=== PATIENT | male | born 1975 | race Caucasian/White ===

== ENCOUNTER 2019-11-28 08:44 | Emergency (ER) | payer MEDICAID, OTHER ==
[2019-11-28] MEDS ORDERED: LORazepam 1 MG Tab PO ONE (09:13)
--- NOTE | 2019-11-28 09:20 | EDM.PDOC ---
ED HPI GENERAL MEDICAL PROBLEM - General Chief Complaint: Medication Administration Stated Complaint: OFF MEDS Time Seen by Provider: 11/28/19 09:04 Source of Information: Reports: Patient - History of Present Illness INITIAL COMMENTS - FREE TEXT/NARRATIVE: Patient is a 44-year-old male with a history of depression who is presenting with 3 days of worsening anhedonia fatigue and anxiety in the setting of running out of his duloxetine 4 days ago due to a mixup with the prescriptions that are normally mailed to him from his home in [place]. He denies HI or SI he denies auditory or visual hallucinations. Denies any physical complaints. He does report that became very upset recently and punched a wall with his right hand but he denies any hand pain. - Related Data Allergies Allergy/AdvReac Type Severity Reaction Status Date / Time No Known Allergies Allergy Verified 11/28/19 09:07 Home Meds: Home Meds DULoxetine [Cymbalta] 60 mg PO DAILY 7 Days #7 cap 11/28/19 [Rx] Past Medical History - Past Health History Medical/Surgical History: Denies Medical/Surgical History Respiratory History: Reports: Asthma Psychiatric History: Reports: Anxiety - Infectious Disease History Infectious Disease History: Reports: None Social & Family History - Family History Family Medical History: Noncontributory - Tobacco Use Smoking Status *Q: Unknown Ever Smoked - Caffeine Use Caffeine Use: Reports: None - Recreational Drug Use Recreational Drug Use: No ED ROS GENERAL - Review of Systems Review Of Systems: See Below Free Text/Narrative/Comment: General: No fever. Skin: No rash. Eyes: No vision problems. ENT: No sore throat. Neck: No neck stiffness. Respiratory: No shortness of breath. Cardiac: No chest pain. Gastrointestinal: No nausea, vomiting or abdominal pain. Urinary: No dysuria. Musculoskeletal: HPI Neurologic: No headache. Psychiatric: Per HPI ED EXAM, GENERAL - Physical Exam Exam: See Below Free Text/Narrative:: General Appearance: No acute distress, appears comfortable Skin: No rash HEENT: Normocephalic/atraumatic, sclera anicteric, mucous membranes moist Neck: Normal range of motion Chest and Lungs: Bilateral breath sounds, clear to auscultation Cardiovascular: Regular rate and rhythm, no murmur Abdomen: Soft, non-tender Back: Normal Musculoskeletal: Abrasions over the knuckles of the right hand without underlying tenderness swelling deformity or limitation in range of motion there is no tenderness to palpation of the right hand which is neurovascularly intact strength intact Neurologic: Awake, alert, no obvious deficits, moving all extremities Psychiatric: Tearful and anxious, no SI, no HI, no signs of internal stimuli, thoughts are linear and goal-directed and future oriented Course - Vital Signs Last Recorded V/S: Last Vital Signs Temp 98.3 F 11/28/19 09:08 Pulse 69 11/28/19 09:08 Resp 17 11/28/19 09:08 BP 142/92 H 11/28/19 09:08 Pulse Ox 98 11/28/19 09:08 - Orders/Labs/Meds Orders: Active Orders 24 hr Category Date Time Status LORazepam [Ativan] Med 11/28/19 09:13 Once 1 mg PO ONETIME ONE Departure - Departure Time of Disposition: :17 Disposition: Home, Self-Care 01 Condition: Good Clinical Impression: Depression - Discharge Information *PRESCRIPTION DRUG MONITORING PROGRAM REVIEWED*: Not Applicable *COPY OF PRESCRIPTION DRUG MONITORING REPORT IN PATIENT ERNESTINE: Not Applicable Instructions: Living With Depression Referrals: [facility] [Outside] Additional Instructions: The following information is given to patients seen in the emergency department who are being discharged to home. This information is to outline your options for follow-up care. We provide all patients seen in our emergency department with a follow-up referral. The need for follow-up, as well as the timing and circumstances, are variable depending upon the specifics of your emergency department visit. If you don't have a primary care physician on staff, we will provide you with a referral. We always advise you to contact your personal physician following an emergency department visit to inform them of the circumstance of the visit and for follow-up with them and/or the need for any referrals to a consulting specialist. The emergency department will also refer you to a specialist when appropriate. This referral assures that you have the opportunity for follow-up care with a specialist. All of these measure are taken in an effort to provide you with optimal care, which includes your follow-up. Under all circumstances we always encourage you to contact your private physician who remains a resource for coordinating your care. When calling for follow-up care, please make the office aware that this follow-up is from your recent emergency room visit. If for any reason you are refused follow-up, please contact the [facility] Emergency Department at and asked to speak to the emergency department charge nurse. Sepsis Event Note - Evaluation Sepsis Screening Result: No Definite Risk - Focused Exam Vital Signs: Vital Signs Temp Pulse Resp BP Pulse Ox 11/28/19 09:08 98.3 F 69 17 142/92 H 98 Date Exam was Performed: 11/28/19 Time Exam was Performed: 09:13 - My Orders Last 24 Hours: My Active Orders 11/28/19 09:13 LORazepam [Ativan] 1 mg PO ONETIME ONE - Assessment/Plan Last 24 Hours: My Active Orders 11/28/19 09:13 LORazepam [Ativan] 1 mg PO ONETIME ONE Assessment:: 44-year-old man with history of depression presenting with tearfulness and increased anxiety and anhedonia likely secondary to running out of his duloxetine. He has no active HI he has no active SI he has no signs of internal stimuli his thoughts are linear and goal-directed and future oriented I do not see an indication for inpatient psychiatric admission. Patient is somewhat anxious and says that his roommate can drive him home. For this reason help with patient's anxiety he was given 1 mg of p.o. Ativan. A 2-week prescription for his medication was sent to the local pharmacy.
== END 2019-11-28 09:39 | disposition home or self-care (01) ==
LOC: MW.ED 08:44
DX: F32.9 Major depressive disorder, single episode, unspecified (principal); F41.9 Anxiety disorder, unspecified; Z79.899 Other long term (current) drug therapy
CPT/HCPCS: 99283; A9270

== ENCOUNTER 2019-12-04 14:12 | Emergency (ER) | payer MEDICAID, OTHER ==
--- NOTE | 2019-12-04 14:23 | EDM.PDOC ---
ED HPI GENERAL MEDICAL PROBLEM - General Chief Complaint: General Stated Complaint: MEDICATION REFILL Time Seen by Provider: 12/04/19 14:15 Source of Information: Reports: Patient History Limitations: Reports: No Limitations - History of Present Illness INITIAL COMMENTS - FREE TEXT/NARRATIVE: HISTORY AND PHYSICAL: History of present illness: Patient is a 44-year-old male who presents to the emergency room with request of medication refill and right knee pain. Patient takes Cymbalta 60 mg once daily for depression and PTSD. He denies any thoughts of self harm or harming of others. [place] and has not been able to establish with a primary care provider. He did call his primary care provider back home, he had a friend fill his prescription and mail it to him. Supposedly the friend mailed it to the wrong address and the medication was returned to her. He did come to our emergency room earlier this month for medication refill, given 7 tablets but today would be his last dose. He also would like his right knee looked at as he feels that he needs "fluid drained off of it" as he works long hard hours and feels ibuprofen is not alleviating his discomfort. He did have an arthroscopy done July 2018 and has had intermittent pain and discomfort since then, which he associates with "working hard". He denies any injury, trauma or falls. Denies any numbness, tingling or weakness of the affected extremity. Patient offers no systemic complaints. Review of systems: As per history of present illness and below otherwise all systems reviewed and negative. Past medical history: As per history of present illness and as reviewed below otherwise noncontributory. Surgical history: As per history of present illness and as reviewed below otherwise noncontributory. Social history: See social history for further information Family history: As per history of present illness and as reviewed below otherwise noncontributory. Physical exam: General: Well-developed and well-nourished 44-year-old male. Alert and oriented. Nontoxic-appearing and in no acute distress. HEENT: Atraumatic, normocephalic, pupils equal and reactive bilaterally, negative for conjunctival pallor or scleral icterus, mucous membranes moist, TMs normal bilaterally, throat clear, neck supple, nontender, trachea midline. No drooling or trismus noted. No meningeal signs. No hot potato voice noted. Lungs: Clear to auscultation, breath sounds equal bilaterally, chest nontender. Heart: S1S2, regular rate and rhythm without overt murmur Abdomen: Soft, nondistended, nontender. Negative for masses or hepatosplenomegaly. Negative for costovertebral tenderness. Skin: Intact, warm, dry. No lesions or rashes noted. Extremities: Atraumatic, moves all extremities per self without difficulty or deficits, negative for cords or calf pain. Neurovascular unremarkable. Neuro: Awake, alert, oriented. Cranial nerves II through XII unremarkable. Cerebellum unremarkable. Motor and sensory unremarkable throughout. Exam nonfocal. Notes: Patient's right knee exam is within normal limits. There is no fluid, soft tissue swelling or redness of the knee. He states if I "cannot drain it all just follow-up" and declines wanting this evaluated further. We did discuss the need to establish with a primary care provider as he cannot keep returning to the emergency room for his Cymbalta to be refilled. I will give him a two- week supply and put him on our expedited follow-up list through our primary care clinic. He denies any other concerns or needs for being here today. Supportive care measures were reviewed and discussed. Voices understanding and is agreeable to plan of care. Denies any further questions or concerns at this time. Diagnostics: None Therapeutics: None Prescription: Cymbalta (#14) Impression: Encounter for medication refill Right knee pain Plan: 1. Further medication refills will need to be done through the primary care office, not the emergency room. 2. Take your medication as directed. 3. Rest, ice, elevate the right knee for comfort purposes. You can alternate Tylenol and ibuprofen as we discussed. You may want to consider following up with an orthopedic provider if this pain continues. 4. As we discussed, establish care with a primary care provider as you state you are going to be local to the area. 5. Return to the ED as needed and as discussed. Definitive disposition and diagnosis as appropriate pending reevaluation and review of above. - Related Data Allergies Allergy/AdvReac Type Severity Reaction Status Date / Time No Known Allergies Allergy Verified 11/28/19 09:07 Home Meds: Home Meds DULoxetine [Cymbalta] 60 mg PO DAILY 7 Days #7 cap 11/28/19 [Rx] DULoxetine HCl [Cymbalta] 60 mg PO DAILY #14 capsule. 12/04/19 [Rx] Past Medical History - Past Health History Medical/Surgical History: Denies Medical/Surgical History Respiratory History: Reports: Asthma Psychiatric History: Reports: Anxiety - Infectious Disease History Infectious Disease History: Reports: None Social & Family History - Family History Family Medical History: Noncontributory - Caffeine Use Caffeine Use: Reports: None ED ROS GENERAL - Review of Systems Review Of Systems: Comprehensive ROS is negative, except as noted in HPI. ED EXAM, GENERAL - Physical Exam Exam: See Below (See dictation) Departure - Departure Time of Disposition: 14:31 Disposition: Home, Self-Care 01 Clinical Impression: Medication refill Right knee pain Qualifiers: Chronicity: unspecified Qualified Code(s): M25.561 - Pain in right knee - Discharge Information Prescriptions: DULoxetine HCl [Cymbalta] 60 mg PO DAILY #14 capsule. Instructions: Medicine Refill at the Emergency Department Forms: ED Department Discharge Additional Instructions: The following information is given to patients seen in the emergency department who are being discharged to home. This information is to outline your options for follow-up care. We provide all patients seen in our emergency department with a follow-up referral. The need for follow-up, as well as the timing and circumstances, are variable depending upon the specifics of your emergency department visit. If you don't have a primary care physician on staff, we will provide you with a referral. We always advise you to contact your personal physician following an emergency department visit to inform them of the circumstance of the visit and for follow-up with them and/or the need for any referrals to a consulting specialist. The emergency department will also refer you to a specialist when appropriate. This referral assures that you have the opportunity for follow-up care with a specialist. All of these measure are taken in an effort to provide you with optimal care, which includes your follow-up. Under all circumstances we always encourage you to contact your private physician who remains a resource for coordinating your care. When calling for follow-up care, please make the office aware that this follow-up is from your recent emergency room visit. If for any reason you are refused follow-up, please contact the [facility] Emergency Department at and asked to speak to the emergency department charge nurse. [facility] [address] [place] [address] [facility] [address] [place] [address] 1. Further medication refills will need to be done through the primary care office, not the emergency room. 2. Take your medication as directed. 3. Rest, ice, elevate the right knee for comfort purposes. You can alternate Tylenol and ibuprofen as we discussed. You may want to consider following up with an orthopedic provider if this pain continues. 4. As we discussed, establish care with a primary care provider as you state you are going to be local to the area. 5. Return to the ED as needed and as discussed. Sepsis Event Note - Focused Exam Date Exam was Performed: 12/04/19 Time Exam was Performed: 14:25
== END 2019-12-04 14:47 | disposition home or self-care (01) ==
LOC: MW.ED 14:12
CPT/HCPCS: 99282; 99283

== ENCOUNTER 2020-03-31 20:28 | Emergency (ER) | payer MEDICAID, OTHER ==
[2020-03-31] MEDS ORDERED: Sodium Chloride 0.9% 10 ML Syringe FLUSH PRN (21:51)
[2020-03-31] MEDS ORDERED: Sodium Chloride 0.9% 2.5 ML Syringe FLUSH PRN (21:51)
[2020-03-31] MEDS ORDERED: Alum Hydrox/Mag Hydrox/Simeth 15 ML, Lidocaine 2% 5 ML PO ONE ×2 (22:00)
[2020-03-31 22:24] LABS: CARBON DIOXIDE,CO2 20.9 mmol/L (21.0-32.0); POTASSIUM,K 2.7 mmol/L (3.5-5.1)
--- NOTE | 2020-03-31 22:33 | CR ---
INDICATION: Cough TECHNIQUE: Chest 2 views. COMPARISON: None FINDINGS: Cardiovascular and mediastinum: Heart size and vasculature are normal in caliber and appearance. Mediastinum is within normal limits. Lungs and pleural spaces: Lungs are clear. No sign of infiltrate or mass. No sign of pleural effusion. No pneumothorax. Bones and soft tissues: No significant findings. IMPRESSION: Unremarkable chest. Dictated by Alvarez Cao MD @ Mar 31 2020 10:30PM Signed by Dr. Alvarez Cao @ Mar 31 2020 10:31PM
[2020-03-31] MEDS ORDERED: Magnesium Sulfate/Water 2 GM in Premix Bag 1 BAG IV ONE (22:40)
[2020-03-31] MEDS ORDERED: Lactated Ringers 1,000 ML IV ONE (22:40)
[2020-03-31] MEDS ORDERED: Potassium Chloride 10% 20 MEQ/15 ML Soln 30 ML UD Cup PO ONE (22:40)
[2020-03-31] MEDS ORDERED: Acetaminophen 500 MG Tab PO ONE (22:41)
[2020-03-31] MEDS ORDERED: fentaNYL 50 MCG/ML SDV IVPUSH ONE (22:41)
[2020-03-31] MEDS ORDERED: Iopamidol 755 Mg/ML 100 ML Bottle IVPUSH ONE (23:31)
--- NOTE | 2020-03-31 23:39 | EDM.PDOC ---
ED HPI GENERAL MEDICAL PROBLEM - General Chief Complaint: Gastrointestinal Problem Stated Complaint: NAUSEA,VOMITTING,COUGH,DIARRHEA Time Seen by Provider: 03/31/20 21:31 Source of Information: Reports: Patient, Old Records History Limitations: Reports: No Limitations - History of Present Illness INITIAL COMMENTS - FREE TEXT/NARRATIVE: 44-year-old male with a past medical history of depression and hepatitis C in remission presenting with multiple complaints. Patient reports a 5-day history of periumbilical abdominal pain. Nothing makes it better or worse, pain is constant. Described as "dull". Also reports diffuse muscle cramps to the upper and lower extremities, decreased appetite, and a nonproductive cough. Did have some nausea and vomiting over the past few days but none at this moment. No sick contacts or recent travel. Denies fever, hemoptysis, chest pain, shortness of breath, hematemesis, diarrhea, bloody stools, dysuria, urinary frequency. ROS: A 10-point review of systems was negative, except as noted in the HPI (or in the ROS section of this note). Past medical history: Reviewed, no additional pertinent history. Surgical history: Reviewed in system, no additional pertinent history. Social history: Reviewed in system, no additional pertinent history. Family history: Reviewed in system, no additional pertinent history. PHYSICAL EXAM Vital signs reviewed. Nursing notes reviewed. Constitutional: Awake, alert, non-distressed. Head: Normocephalic, atraumatic. Eyes: EOMI, conjunctiva normal, no discharge, no scleral icterus. Ears, Nose, Throat: External ears and nose normal, moist oral mucosa. Cardiovascular: 2+ radial pulse, capillary refill less than 2 seconds. Pulmonary: normal work of breathing, no accessory muscle use. Abdomen/GI: Soft, minimal periumbilical tenderness, nondistended, no guarding or rigidity, no masses. Musculoskeletal: No deformities. Integumentary: Appropriate color for ethnicity, warm, dry, no pallor or jaundice, no rash. Neurologic: Alert, answering questions appropriately, normal speech, no facial droop, moving all extremities well. Psychiatric: Appropriate mood and affect, normal thought process. Abdominal Pain Score (Numeric/FACES): 10 - Related Data Allergies Allergy/AdvReac Type Severity Reaction Status Date / Time No Known Allergies Allergy Verified 12/04/19 14:38 Home Meds: Home Meds DULoxetine [Cymbalta] 60 mg PO DAILY 7 Days #7 cap 11/28/19 [Rx] Ibuprofen [Motrin] 800 mg PO BIDM PRN 03/31/20 [History] Azithromycin 250 mg PO DAILY 4 Days #4 tablet 04/01/20 [Rx] Potassium Chloride 40 meq PO DAILY 5 Days #10 packet 04/01/20 [Rx] Past Medical History - Past Health History Medical/Surgical History: Denies Medical/Surgical History HEENT History: Reports: None Cardiovascular History: Reports: None Respiratory History: Reports: Asthma Gastrointestinal History: Reports: None Genitourinary History: Reports: None Musculoskeletal History: Reports: Back Pain, Chronic Neurological History: Reports: None Psychiatric History: Reports: Anxiety, Depression, PTSD Endocrine/Metabolic History: Reports: None Hematologic History: Reports: None Immunologic History: Reports: None Oncologic (Cancer) History: Reports: None Dermatologic History: Reports: None - Infectious Disease History Infectious Disease History: Reports: Chicken Pox, Hepatitis C, Shingles - Past Surgical History Head Surgeries/Procedures: Reports: None HEENT Surgical History: Reports: Adenoidectomy, Tonsillectomy Musculoskeletal Surgical History: Reports: Arthroscopic Knee Social & Family History - Family History Family Medical History: Noncontributory - Tobacco Use Smoking Status *Q: Current Every Day Smoker Years of Tobacco use: 25 Packs/Tins Daily: 0.5 Used Tobacco, but Quit: No Second Hand Smoke Exposure: Yes - Caffeine Use Caffeine Use: Reports: Coffee, Soda - Recreational Drug Use Recreational Drug Use: Yes Drug Use in Last 12 Months: Yes Recreational Drug Type: Reports: Marijuana/Hashish Recreational Drug Use Frequency: Weekly ED ROS GENERAL - Review of Systems Review Of Systems: See Below ED EXAM, GI/ABD - Physical Exam Exam: See Below Course - Vital Signs Text/Narrative:: Patient hemodynamically stable, afebrile, well-appearing, looks nontoxic. Differential diagnosis includes but is not limited to: Appendicitis, pancreatitis, gastritis, peptic ulcer disease, intra-abdominal infection, sepsis, pneumonia, viral URI, COVID 19 infection, rhabdomyolysis, electrolyte disturbance, UTI, pyelonephritis, etc. Labs show leukocytosis. Normal lactate. Severe hypokalemia 2.7, creatinine elevated at 1.5. Bilirubin is elevated at 1.3. CK elevated at 616. Lipase is within normal limits. Urinalysis shows small ketones, negative blood, no e vidence of infection. Rapid COVID-[address] abdomen/pelvis with contrast demonstrated groundglass opacities in the lung bases suspicious for viral pneumonia, otherwise no acute intra-abdominal findings. Patient was given IV lactated Ringer's, magnesium sulfate, p.o. potassium. Also received IV ceftriaxone, p.o. azithromycin, acetaminophen, and IV fentanyl. Pain relieved after analgesic medication. We had initially planned to admit the patient to the hospital for hypokalemia and concern for pneumonia. He was initially agreeable to this plan. At 2:12 AM I was informed that the patient wants to leave the emergency department AGAINST MEDICAL ADVICE. He appears to have capacity and does not appear clinically intoxicated and exhibits no evidence of encephalopathy or altered mental status. He states that he is tired of waiting for a bed and wants to go home. I am unable to convince him to stay. As a stopgap measure we will prescribe oral potassium and another 4 days of oral azithromycin for community-acquired pneumonia. He understands that his condition could worsen at any point he could potentially from this decision and is accepting of these risks. I counseled him to increase his fluid intake over the next several days. He does need to follow-up with a primary medical clinic in the next 24 to 48 hours for reevaluation. I also counseled him that a negative COVID test here is not definitive and that there is a strong possibility that he has COVID given his constellation of symptoms and radiographic findings. I am suspicious that he has falsely tested negative. I counseled the patient that we are concerned for COVID and that he should not go to work until he has been well for at least 72 hours and at least 10 days from the onset of his symptoms. We will place him on the family medicine clinic referral list for close follow-up, ideally within 24 hours. I was unable to provide specific written discharge instructions to the patient that I would typically dictate due to EMR error. However I did reiterated the patient needs to follow-up closely with the family medicine clinic within 24 hours for repeat COVID testing, to have his potassium rechecked, and for general reevaluation. Patient voiced understanding and had no questions. He was discharged in good condition AGAINST MEDICAL ADVICE. Last Recorded V/S: Last Vital Signs Temp 36.2 C 03/31/20 21:39 Pulse 80 04/01/20 00:48 Resp 18 04/01/20 00:48 BP 140/69 04/01/20 00:48 Pulse Ox 99 04/01/20 00:48 - Orders/Labs/Meds Orders: Active Orders 24 hr Category Date Time Status Pulse Oximetry [RC] ASDIRECTED Care 03/31/20 21:51 Active Nothing Per Oral Diet [DIET] Diet 03/31/20 Dinner Active Sodium Chloride 0.9% [Saline Flush] Med 03/31/20 21:51 Active 10 ml FLUSH ASDIRECTED PRN Sodium Chloride 0.9% [Saline Flush] Med 03/31/20 21:51 Active 2.5 ml FLUSH ASDIRECTED PRN Saline Lock Insert [OM.PC] Stat Oth 03/31/20 21:51 Ordered Medication Orders Sodium Chloride (Saline Flush) 10 ml FLUSH ASDIRECTED PRN PRN Reason: Keep Vein Open Last Admin: 03/31/20 23:06 Dose: 10 ml Documented by: VENICE Sodium Chloride (Saline Flush) 2.5 ml FLUSH ASDIRECTED PRN PRN Reason: Keep Vein Open Last Admin: 03/31/20 23:06 Dose: 2.5 ml Documented by: VENICE Labs: Laboratory Tests 03/31/20 03/31/20 03/31/20 Range/Units 21:52 21:52 21:52 WBC 12.90 H (4.0-11.0) K/uL RBC 4.79 (4.50-5.90) M/uL Hgb 16.1 (13.0-17.0) g/dL Hct 43.9 (38.0-50.0) % MCV 91.6 (80.0-98.0) fL MCH 33.6 H (27.0-32.0) pg MCHC 36.7 (31.0-37.0) g/dL RDW Std Deviation 41.2 (28.0-62.0) fl RDW Coeff of Jess 12 (11.0-15.0) % Plt Count 319 (150-400) K/uL MPV 10.00 (7.40-12.00) fL Neut % (Auto) 66.8 (48.0-80.0) % Lymph % (Auto) 21.2 (16.0-40.0) % Turner % (Auto) 11.2 (0.0-15.0) % Eos % (Auto) 0.4 (0.0-7.0) % Baso % (Auto) 0.4 (0.0-1.5) % Neut # (Auto) 8.6 H (1.4-5.7) K/uL Lymph # (Auto) 2.7 H (0.6-2.4) K/uL Turner # (Auto) 1.4 H (0.0-0.8) K/uL Eos # (Auto) 0.1 (0.0-0.7) K/uL Baso # (Auto) 0.1 (0.0-0.1) K/uL Nucleated RBC % 0.0 /100WBC Nucleated RBCs # 0 K/uL Lactate 1.7 (0.20-2.00) mmol/L Sodium 135 L (136-148) mmol/L Potassium 2.7 L (3.5-5.1) mmol/L Chloride 96 L (98-107) mmol/L Carbon Dioxide 20.9 L (21.0-32.0) mmol/L BUN 21 H (7.0-18.0) mg/dL Creatinine 1.5 H (0.8-1.3) mg/dL Est Cr Clr Drug Dosing 65.56 mL/min Estimated GFR (MDRD) 51.1 ml/min Glucose 107 H (74-106) mg/dL Calcium 10.3 H (8.5-10.1) mg/dL Total Bilirubin 1.3 H (0.2-1.0) mg/dL AST 34 (15-37) IU/L ALT 26 (14-63) IU/L Alkaline Phosphatase 94 (46-116) U/L Creatine Kinase 616 H (26-308) U/L Total Protein 8.6 H (6.4-8.2) g/dL Albumin 5.2 H (3.4-5.0) g/dL Globulin 3.4 (2.6-4.0) g/dL Albumin/Globulin Ratio 1.5 (0.9-1.6) Lipase 246 (73-393) U/L Urine Color Urine Appearance Urine pH (5.0-8.0) Ur Specific Jones (1.001-1.035) Urine Protein (NEGATIVE) mg/dL Urine Glucose (UA) (NEGATIVE) mg/dL Urine Ketones (NEGATIVE) mg/dL Urine Occult Blood (NEGATIVE) Urine Nitrite (NEGATIVE) Urine Bilirubin (NEGATIVE) Urine Urobilinogen (<2.0) EU/dL Ur Leukocyte Esterase (NEGATIVE) COVID-19 (NEELIMA) (NEGATIVE) 03/31/20 04/01/20 Range/Units 22:40 00:15 WBC (4.0-11.0) K/uL RBC (4.50-5.90) M/uL Hgb (13.0-17.0) g/dL Hct (38.0-50.0) % MCV (80.0-98.0) fL MCH (27.0-32.0) pg MCHC (31.0-37.0) g/dL RDW Std Deviation (28.0-62.0) fl RDW Coeff of Jess (11.0-15.0) % Plt Count (150-400) K/uL MPV (7.40-12.00) fL Neut % (Auto) (48.0-80.0) % Lymph % (Auto) (16.0-40.0) % Turner % (Auto) (0.0-15.0) % Eos % (Auto) (0.0-7.0) % Baso % (Auto) (0.0-1.5) % Neut # (Auto) (1.4-5.7) K/uL Lymph # (Auto) (0.6-2.4) K/uL Turner # (Auto) (0.0-0.8) K/uL Eos # (Auto) (0.0-0.7) K/uL Baso # (Auto) (0.0-0.1) K/uL Nucleated RBC % /100WBC Nucleated RBCs # K/uL Lactate (0.20-2.00) mmol/L Sodium (136-148) mmol/L Potassium (3.5-5.1) mmol/L Chloride (98-107) mmol/L Carbon Dioxide (21.0-32.0) mmol/L BUN (7.0-18.0) mg/dL Creatinine (0.8-1.3) mg/dL Est Cr Clr Drug Dosing mL/min Estimated GFR (MDRD) ml/min Glucose (74-106) mg/dL Calcium (8.5-10.1) mg/dL Total Bilirubin (0.2-1.0) mg/dL AST (15-37) IU/L ALT (14-63) IU/L Alkaline Phosphatase (46-116) U/L Creatine Kinase (26-308) U/L Total Protein (6.4-8.2) g/dL Albumin (3.4-5.0) g/dL Globulin (2.6-4.0) g/dL Albumin/Globulin Ratio (0.9-1.6) Lipase (73-393) U/L Urine Color YELLOW Urine Appearance CLEAR Urine pH 5.0 (5.0-8.0) Ur Specific Jones <= 1.005 (1.001-1.035) Urine Protein NEGATIVE (NEGATIVE) mg/dL Urine Glucose (UA) NEGATIVE (NEGATIVE) mg/dL Urine Ketones 15 H (NEGATIVE) mg/dL Urine Occult Blood NEGATIVE (NEGATIVE) Urine Nitrite NEGATIVE (NEGATIVE) Urine Bilirubin NEGATIVE (NEGATIVE) Urine Urobilinogen 0.2 (<2.0) EU/dL Ur Leukocyte Esterase NEGATIVE (NEGATIVE) COVID-19 (NEELIMA) NEGATIVE (NEGATIVE) Meds: Medications Generic Name Dose Route Start Last Admin Trade Name Freq PRN Reason Stop Dose Admin Sodium Chloride 10 ml 03/31/20 21:51 03/31/20 23:06 Saline Flush FLUSH 10 ml ASDIRECTED PRN Administration Keep Vein Open Sodium Chloride 2.5 ml 03/31/20 21:51 03/31/20 23:06 Saline Flush FLUSH 2.5 ml ASDIRECTED PRN Administration Keep Vein Open Discontinued Medications Generic Name Dose Route Start Last Admin Trade Name Freq PRN Reason Stop Dose Admin Acetaminophen 1,000 mg 03/31/20 22:41 03/31/20 23:04 Tylenol Extra Strength PO 03/31/20 22:42 1,000 mg ONETIME ONE Administration Azithromycin 500 mg 04/01/20 00:34 04/01/20 00:41 Zithromax PO 04/01/20 00:35 500 mg NOW STA Administration Al Hydroxide/Mg Hydroxide 15 0 ml 03/31/20 22:00 03/31/20 22:36 ml/ Lidocaine HCl 5 ml PO 03/31/20 22:01 1 each ONETIME ONE Administration Fentanyl 100 mcg 03/31/20 22:41 03/31/20 23:03 Fentanyl IVPUSH 03/31/20 22:42 100 mcg ONETIME ONE Administration Lactated Ringer's 1,000 mls @ 999 mls/hr 03/31/20 22:40 03/31/20 23:03 Ringers, Lactated IV 03/31/20 23:40 999 mls/hr .BOLUS ONE Administration Magnesium Sulfate 2 gm/ Premix 50 mls @ 50 mls/hr 03/31/20 22:40 03/31/20 23:03 IV 03/31/20 23:39 50 mls/hr ONETIME ONE Administration Ceftriaxone Sodium/Dextrose 1 50 mls @ 100 mls/hr 04/01/20 00:34 04/01/20 00:41 gm/ Premix IV 04/01/20 01:03 100 mls/hr ONETIME ONE Administration Iopamidol 100 ml 03/31/20 23:31 03/31/20 23:32 Isovue-370 (76%) IVPUSH 03/31/20 23:32 100 ml ONETIME ONE Administration Potassium Chloride 60 meq 03/31/20 22:40 03/31/20 23:01 Potassium Chloride PO 03/31/20 22:41 60 meq ONETIME ONE Administration Departure - Departure Time of Disposition: 02:15 Disposition: Against Medical Advice 07 Condition: Good Clinical Impression: Hypokalemia Community acquired pneumonia Qualifiers: Laterality: unspecified laterality Qualified Code(s): J18.9 - Pneumonia, unspecified organism - Discharge Information *PRESCRIPTION DRUG MONITORING PROGRAM REVIEWED*: Not Applicable *COPY OF PRESCRIPTION DRUG MONITORING REPORT IN PATIENT ERNESTINE: Not Applicable Sepsis Event Note (ED) - Evaluation Sepsis Screening Result: No Definite Risk - Focused Exam Vital Signs: Vital Signs Temp Pulse Resp BP Pulse Ox 03/31/20 21:39 36.2 C 76 20 149/94 H 98 - My Orders Last 24 Hours: My Active Orders 03/31/20 Dinner Nothing Per Oral Diet [DIET] 03/31/20 21:51 Pulse Oximetry [RC] ASDIRECTED Sodium Chloride 0.9% [Saline Flush] 10 ml FLUSH ASDIRECTED PRN Sodium Chloride 0.9% [Saline Flush] 2.5 ml FLUSH ASDIRECTED PRN Saline Lock Insert [OM.PC] Stat - Assessment/Plan Last 24 Hours: My Active Orders 03/31/20 Dinner Nothing Per Oral Diet [DIET] 03/31/20 21:51 Pulse Oximetry [RC] ASDIRECTED Sodium Chloride 0.9% [Saline Flush] 10 ml FLUSH ASDIRECTED PRN Sodium Chloride 0.9% [Saline Flush] 2.5 ml FLUSH ASDIRECTED PRN Saline Lock Insert [OM.PC] Stat
--- NOTE | 2020-04-01 00:05 | CT ---
INDICATION: Periumbilical abdominal pain and leukocytosis TECHNIQUE: Axial images were obtained from the diaphragm to the pubic symphysis. Reformats were obtained in the coronal and sagittal plane. IV Contrast: 100 cc Isovue 370 Oral Contrast: None COMPARISON: None. FINDINGS: Lower chest: Focal ground-glass opacities within the left lower lobe (series 201, image 29). Liver: Unremarkable. Normal in size and attenuation. No masses. Gallbladder and bile ducts: Unremarkable. No stones or inflammation. No biliary dilatation. Spleen: Unremarkable. Normal in size without mass. Pancreas: Unremarkable. No mass or inflammation. Adrenal glands: Unremarkable. No nodules. Kidneys: Unremarkable. No masses, stones, or hydronephrosis. Vasculature: Unremarkable. GI tract: The stomach is unremarkable. No dilated loops of large or small intestine with note made of fluid within the colon. Appendix unremarkable. Pelvis: Bladder moderately distended and unremarkable. Mild prostatic calcification Bones: Degenerative disc disease thoracolumbar spine IMPRESSION: 1. Ground-glass opacities in the lung bases suspicious for a viral pneumonia, including COVID pneumonia. 2. No dilated bowel or localized inflammation, however fluid is noted within the colon which can be seen in a diarrheal illness. Please note that all CT scans at this facility use dose modulation, iterative reconstruction, and/or weight-based dosing when appropriate to reduce radiation dose to as low as reasonably achievable. Dictated by Iftikhar Arriaza MD @ Mar 31 2020 11:57PM Signed by Dr. Iftikhar Arriaza @ Apr 01 2020 12:04AM
[2020-04-01] MEDS ORDERED: Azithromycin 250 MG Tab PO STA (00:34)
[2020-04-01] MEDS ORDERED: cefTRIAXone 1 GM in Premix Bag 1 BAG IV ONE (00:34)
== END 2020-04-01 02:25 | disposition left against medical advice (07) ==
LOC: MW.ED 20:28 → UNDOADMIN 04-01 00:35 → MW.MS 04-01 00:35 → UNDODISIN 04-01 02:15
DX: E87.6 Hypokalemia (principal); J18.9 Pneumonia, unspecified organism; Z20.828 Contact with and (suspected) exposure to other viral communicable diseases; F41.9 Anxiety disorder, unspecified; F32.9 Major depressive disorder, single episode, unspecified; J45.909 Unspecified asthma, uncomplicated; M54.9 Dorsalgia, unspecified; F17.200 Nicotine dependence, unspecified, uncomplicated; G89.29 Other chronic pain; Z79.899 Other long term (current) drug therapy
CPT/HCPCS: 36415; 71046; 74177; 80053; 81003; 82550; 83605; 83690; 85025; 87635; 96365; 99284; A9270; J0696; J3010; J3475; J7120; Q9967; 99283; U0002

== ENCOUNTER 2020-04-10 16:00 | Emergency (ER) | payer MEDICAID, OTHER ==
--- NOTE | 2020-04-10 16:20 | EDM.PDOC ---
ED HPI GENERAL MEDICAL PROBLEM - General Chief Complaint: General Stated Complaint: med clearance Time Seen by Provider: 04/10/20 16:05 Source of Information: Reports: Patient History Limitations: Reports: No Limitations - History of Present Illness INITIAL COMMENTS - FREE TEXT/NARRATIVE: HISTORY AND PHYSICAL: History of present illness: Patient is a 44-year-old male who presents to the emergency room with law enforcement for medical clearance exam. Patient states that he does take Cymbalta on a daily basis is and has not yet taken this medication. He is concerned as he does take this for his PTSD does not have this medication available to him. Law enforcement has no specific concerns. Patient denies any fever, chills, headache, change in vision, syncope or near syncope. Denies any chest pain, back pain, shortness of breath or cough. Denies any abdominal pain, nausea, vomiting, diarrhea, constipation or dysuria. Has not noted any blood in urine or stool. Patient has been eating and drinking appropriately. Review of systems: As per history of present illness and below otherwise all systems reviewed and negative. Past medical history: As per history of present illness and as reviewed below otherwise noncontributory. Surgical history: As per history of present illness and as reviewed below otherwise noncontributory. Social history: See social history for further information Family history: As per history of present illness and as reviewed below otherwise noncontributory. Physical exam: General: Well developed and well nourished. Alert and orientated x 3. Nontoxic in appearance and in no acute distress. Vital signs are stable and have been reviewed by me. Nursing notes were reviewed. HEENT: Atraumatic, normocephalic, pupils equal and reactive bilaterally, negative for conjunctival pallor or scleral icterus, mucous membranes moist, TMs normal bilaterally, throat clear, neck supple, nontender, trachea midline. No drooling or trismus noted. No meningeal signs. No hot potato voice noted. Lungs: Clear to auscultation, breath sounds equal bilaterally, chest nontender. Normal work of breathing, no accessory muscles used. Heart: S1S2, regular rate and rhythm without overt murmur Abdomen: Soft, nondistended, nontender. Negative for masses or hepatosplenomegaly. Negative for costovertebral tenderness. Skin: Intact, warm, dry. No lesions or rashes noted. Hematologic: No petechiae or purpra. Mucosa appropriate color and normal nail bed color and refill. Extremities: Atraumatic, moves all extremities per self without difficulty or deficits, negative for cords or calf pain. Neurovascular unremarkable. Neuro: Awake, alert, oriented. Cranial nerves II through XII unremarkable. Cerebellum unremarkable. Motor and sensory unremarkable throughout. Exam nonfocal. Notes: Patient declines wanting any diagnostics. We discussed signs and symptoms that would prompt them to return to the Emergency Department. Medication, follow up and supportive care measures were reviewed and discussed. Voices understanding and is agreeable to plan of care. Denies any further questions or concerns at this time. Diagnostics: None Therapeutics: Cymbalta Prescription: None Impression: Encounter for medical screening exam Plan: 1. Take your home medications as directed. 2. Follow-up with your primary care provider as needed. 3. Return to the emergency room as needed and as discussed. Definitive disposition and diagnosis as appropriate pending reevaluation and review of above. knees, hips, low back Pain Score (Numeric/FACES): 6 - Related Data Allergies Allergy/AdvReac Type Severity Reaction Status Date / Time No Known Allergies Allergy Verified 04/10/20 16:09 Home Meds: Home Meds DULoxetine [Cymbalta] 60 mg PO DAILY 7 Days #7 cap 11/28/19 [Rx] Ibuprofen [Motrin] 800 mg PO BIDM PRN 03/31/20 [History] Lansoprazole [Prevacid] 15 mg PO DAILY 04/10/20 [History] Past Medical History - Past Health History Medical/Surgical History: Denies Medical/Surgical History HEENT History: Reports: None Cardiovascular History: Reports: None Respiratory History: Reports: Asthma Gastrointestinal History: Reports: None Genitourinary History: Reports: None Musculoskeletal History: Reports: Back Pain, Chronic, Other (See Below) Other Musculoskeletal History: Hip & Knee pain Neurological History: Reports: None Psychiatric History: Reports: Anxiety, Depression, PTSD Endocrine/Metabolic History: Reports: None Hematologic History: Reports: None Immunologic History: Reports: None Oncologic (Cancer) History: Reports: None Dermatologic History: Reports: None - Infectious Disease History Infectious Disease History: Reports: Chicken Pox, Shingles - Past Surgical History Head Surgeries/Procedures: Reports: None HEENT Surgical History: Reports: Adenoidectomy, Tonsillectomy Musculoskeletal Surgical History: Reports: Arthroscopic Knee, Other (See Below) Social & Family History - Family History Family Medical History: Noncontributory - Tobacco Use Smoking Status *Q: Current Every Day Smoker Years of Tobacco use: 25 Packs/Tins Daily: 0.5 - Caffeine Use Caffeine Use: Reports: Coffee, Soda - Recreational Drug Use Recreational Drug Use: Yes Drug Use in Last 12 Months: Yes Recreational Drug Type: Reports: Marijuana/Hashish Recreational Drug Use Frequency: Daily ED ROS GENERAL - Review of Systems Review Of Systems: Comprehensive ROS is negative, except as noted in HPI. ED EXAM, GENERAL - Physical Exam Exam: See Below (See dictation) Course - Vital Signs Last Recorded V/S: Last Vital Signs Temp 97.4 F 04/10/20 16:07 Pulse 78 04/10/20 16:43 Resp 15 04/10/20 16:43 BP 135/88 04/10/20 16:43 Pulse Ox 97 04/10/20 16:43 - Orders/Labs/Meds Meds: Medications Discontinued Medications Generic Name Dose Route Start Last Admin Trade Name Cody PRN Reason Stop Dose Admin Duloxetine HCl 60 mg 04/10/20 16:30 Cymbalta PO DAILY KAY Departure - Departure Time of Disposition: 16:19 Disposition: Home, Self-Care 01 Clinical Impression: Encounter for medical screening examination - Discharge Information Instructions: Medical Screening Exam Forms: ED Department Discharge Additional Instructions: The following information is given to patients seen in the emergency department who are being discharged to home. This information is to outline your options for follow-up care. We provide all patients seen in our emergency department with a follow-up referral. The need for follow-up, as well as the timing and circumstances, are variable depending upon the specifics of your emergency department visit. If you don't have a primary care physician on staff, we will provide you with a referral. We always advise you to contact your personal physician following an emergency department visit to inform them of the circumstance of the visit and for follow-up with them and/or the need for any referrals to a consulting specialist. The emergency department will also refer you to a specialist when appropriate. This referral assures that you have the opportunity for follow-up care with a specialist. All of these measure are taken in an effort to provide you with optimal care, which includes your follow-up. Under all circumstances we always encourage you to contact your private physician who remains a resource for coordinating your care. When calling for follow-up care, please make the office aware that this follow-up is from your recent emergency room visit. If for any reason you are refused follow-up, please contact the [facility] Emergency Department at and asked to speak to the emergency department charge nurse. [facility] [address] [place] [id number] [facility] [address] [place] [id number] Thank you for choosing the [facility] emergency department in [place] for your medical needs today. It was a pleasure caring for you. Today you were seen in the emergency department for medical clearance exam. 1. Take your home medications as directed. 2. Follow-up with your primary care provider as needed. 3. Return to the emergency room as needed and as discussed. Sepsis Event Note (ED) - Evaluation Sepsis Screening Result: No Definite Risk
[2020-04-10] MEDS ORDERED: DULoxetine 60 MG Cap PO SCH (16:30)
== END 2020-04-10 16:44 | disposition home or self-care (01) ==
LOC: MW.ED 16:00
DX: Z02.89 Encounter for other administrative examinations (principal); F41.9 Anxiety disorder, unspecified; F32.9 Major depressive disorder, single episode, unspecified; F43.10 Post-traumatic stress disorder, unspecified; J45.909 Unspecified asthma, uncomplicated; F17.210 Nicotine dependence, cigarettes, uncomplicated; Z79.899 Other long term (current) drug therapy
CPT/HCPCS: 99282; 99283

== ENCOUNTER 2020-06-25 08:33 | Emergency (ER) | payer MEDICAID ==
[2020-06-25] MEDS ORDERED: Albuterol HFA 18 Gm Inhaler INH STA (09:01)
[2020-06-25] MEDS ORDERED: Dexamethasone 4 MG Tab PO STA (09:02)
--- NOTE | 2020-06-25 09:33 | CR ---
INDICATION: Cough COMPARISON: Two view chest dated 03/31/2020 TECHNIQUE: Portable AP erect chest performed at 9:11 a.m. FINDINGS: The lungs are clear. The heart, mediastinum and pulmonary vessels are of normal size. There is no evidence of pleural fluid. IMPRESSION: Negative chest. Dictated by Perfecto Arteaga MD @ Jun 25 2020 9:29AM Signed by Dr. Perfecto Arteaga @ Jun 25 2020 9:31AM
--- NOTE | 2020-06-25 09:51 | EDM.PDOC ---
ED HPI GENERAL MEDICAL PROBLEM - General Chief Complaint: Respiratory Problem Stated Complaint: COUGHING,HEAVY CHEST Time Seen by Provider: 06/25/20 08:47 - History of Present Illness INITIAL COMMENTS - FREE TEXT/NARRATIVE: CHIEF COMPLAINT(S): Cough HISTORY OF PRESENT ILLNESS: This is a 44-year-old man with a past medical history of asthma who comes to the emergency department with a chief complaint of cough. Patient states that for approximately 4 to 5 days now he is experiencing a cough which is productive of chahal/green sputum. States that he has some associated mild shortness of breath and chest tightness and pressure. He states that he does have a history of asthma and has been using his inhaler more frequently. States that he did have loss of taste but denies any loss of smell. He states that he has been exposed to Covid. He denies any headache. He states that earlier in the week he did have diarrhea for 2 days but that is since resolved. He denies any fever but states that he does have some chills. He denies any chest pain. He states that the chest pressure he does not get diaphoretic, nauseous, or have any vomiting. He denies any family history of early onset CAD or sudden onset . He denies any personal history of CAD. He denies any other symptoms. REVIEW OF SYSTEMS: Constitutional: Positive for chills Eyes: Denies eye pain Ears, Nose, Mouth, & Throat: Denies earache Cardiovascular: Positive for chest tightness Respiratory: Positive for shortness of breath and productive cough Gastrointestinal: Positive for diarrhea. Denies nausea, vomiting, hematochezia, melena Genitourinary: Denies hematuria Skin:Denies a rash Neurological: Denies blurred vision Psychiatric: Denies depression PAST MEDICAL HISTORY: As per history of present illness and as reviewed below otherwise noncontributory. SURGICAL HISTORY: As per history of present illness and as reviewed below otherwise noncontributory. SOCIAL HISTORY: As per history of present illness and as reviewed below otherwi se noncontributory. FAMILY HISTORY: As per history of present illness and as reviewed below otherwise noncontributory. EXAMINATION OF ORGAN SYSTEMS/BODY AREAS: Constitutional: Blood pressure was 136/83, heart rate 79, respiratory 16 with an oxygen saturation 95% on room air. Temperature 35.9 General: Overall well-appearing man who is in no acute distress. Psychiatric: Appropriate mood and affect. Eyes: No scleral icterus or conjunctival erythema ENMT: Moist mucous membranes. No pharyngeal erythema Cardiovascular: Regular, rate, and rhythm. No gallops, murmurs, or rubs. Bilateral upper extremity pulses symmetric and intact. No peripheral edema. No JVD. Respiratory: Patient is speaking in full sentences. There is bibasilar rhonchi with expiratory wheezing. Otherwise clear lung sounds. Gastrointestinal: Soft, non-tender, non-distended. Normoactive bowel sounds Genitourinary: No suprapubic tenderness Musculoskeletal: Normal range of motion. Skin: No lesions or abrasions. Neurological: Alert, GCS 15 MEDICAL DECISION MAKING AND COURSE IN THE ED WITH INTERPRETATION/REVIEW OF DIAGNOSTIC STUDIES: This is a 44-year-old man with a past medical history of asthma who comes to the emergency department with 4 to 5 days of cough, shortness of breath, and chest tightness who has stable vital signs. At this time we will swab the patient for coronavirus. Will obtain a chest x-ray. We will provide the patient with albuterol via MDI with spacer, 1 dose of dexamethasone. I do not believe any other labs or imaging are indicated. I do believe the patient is experiencing a viral upper respiratory infection possibly secondary to coronavirus with possible overlying bronchitis with asthma. EKG was obtained in triage which did not reveal any acute signs of ischemia. Twelve-lead EKG interpreted by myself. Normal sinus rhythm at a rate of 65beats per minute. Normal axis. WA interval is 152ms. QRS duration is 97ms. ST segments are normal without elevations or depressions. No Q waves present. Hypertrophy not noted. There are no prior EKGs. Interpretation: Normal sinus rhythm The radiological images were viewed by myself along with reading the report from the radiologist. Chest x-ray does not reveal any acute cardiopulmonary process. On reevaluation the patient states that his breathing and cough are better. Laboratory: Coronavirus negative I did discuss the results with the patient. At this time the patient was saturating well and had improvement of his symptoms. I did discuss with him at this time that he should continue using albuterol as needed as needed for wheezing and shortness of breath. I discussed the importance of self-isolation for 10 days given his exposure as the coronavirus test is not 100% accurate. I discussed that if he were to have any new or worsening symptoms he needs to return to the emergency department. He was amenable to discharge at this time and had no further questions DISPOSITION: The patient was discharged home in stable condition. The patient will follow up with PCP within 2 to 3 days CONDITION: Fair PROCEDURES: None FINAL IMPRESSION(S)/DIAGNOSES: 1. Acute asthma exacerbation likely secondary to viral upper respiratory infection Juan Perdue M.D. chest Pain Score (Numeric/FACES): 7 - Related Data Allergies Allergy/AdvReac Type Severity Reaction Status Date / Time No Known Allergies Allergy Verified 06/25/20 08:48 Home Meds: Home Meds DULoxetine [Cymbalta] 60 mg PO DAILY 7 Days #7 cap 11/28/19 [Rx] Past Medical History - Past Health History Medical/Surgical History: Denies Medical/Surgical History HEENT History: Reports: None Cardiovascular History: Reports: None Respiratory History: Reports: Asthma Gastrointestinal History: Reports: None Genitourinary History: Reports: None Musculoskeletal History: Reports: Back Pain, Chronic, Other (See Below) Other Musculoskeletal History: Hip & Knee pain Neurological History: Reports: None Psychiatric History: Reports: Anxiety, Depression, PTSD Endocrine/Metabolic History: Reports: None Hematologic History: Reports: None Immunologic History: Reports: None Oncologic (Cancer) History: Reports: None Dermatologic History: Reports: None - Infectious Disease History Infectious Disease History: Reports: Chicken Pox, Shingles - Past Surgical History Head Surgeries/Procedures: Reports: None HEENT Surgical History: Reports: Adenoidectomy, Tonsillectomy Musculoskeletal Surgical History: Reports: Arthroscopic Knee, Other (See Below) Social & Family History - Family History Family Medical History: No Pertinent Family History - Tobacco Use Tobacco Use Status *Q: Current Every Day Tobacco User Years of Tobacco use: 20 Packs/Tins Daily: 1 - Caffeine Use Caffeine Use: Reports: Coffee, Soda - Recreational Drug Use Recreational Drug Use: No ED ROS GENERAL - Review of Systems Review Of Systems: See Below ED EXAM, GENERAL - Physical Exam Exam: See Below Course - Vital Signs Last Recorded V/S: Last Vital Signs Temp 36.6 C 06/25/20 10:30 Pulse 70 06/25/20 10:30 Resp 16 06/25/20 10:30 BP 124/84 06/25/20 10:30 Pulse Ox 94 L 06/25/20 10:30 - Orders/Labs/Meds Orders: Active Orders 24 hr Category Date Time Status CORONAVIRUS COVID-19 PCR [facility] Stat Lab 06/25/20 09:12 Received Labs: Laboratory Tests 06/25/20 Range/Units 09:12 SARS CoV-2 RNA Rapid NEELIMA NEGATIVE (NEGATIVE) Meds: Medications Discontinued Medications Generic Name Dose Route Start Last Admin Trade Name Cody PRN Reason Stop Dose Admin Albuterol 2 gm 06/25/20 09:01 06/25/20 09:17 Ventolin Hfa INH 06/25/20 09:02 2 puff Q2H STA Administration Dexamethasone 6 mg 06/25/20 09:02 06/25/20 09:16 Dexamethasone PO 06/25/20 09:03 6 mg ONETIME STA Administration Departure - Departure Time of Disposition: 10:05 Disposition: Home, Self-Care 01 Condition: Fair Clinical Impression: Acute asthma - Discharge Information *PRESCRIPTION DRUG MONITORING PROGRAM REVIEWED*: No *COPY OF PRESCRIPTION DRUG MONITORING REPORT IN PATIENT ERNESTINE: No Instructions: COVID-19 Frequently Asked Questions, COVID-19, Asthma, Adult, [id number] Referrals: PCP,None [Primary Care Provider] - Forms: ED Department Discharge Additional Instructions: The patient is informed of any results of their evaluation and diagnostic workup and all questions are answered. They are given discharge instructions and return precautions. The patient is stable for discharge. The patient states they understand and agree with the plan and that they will return if their symptoms get worse or if they have any new concerns. The following information is given to patients seen in the emergency department who are being discharged to home. This information is to outline your options for follow-up care. We provide all patients seen in our emergency department with a follow-up referral. The need for follow-up, as well as the timing and circumstances, are variable depending upon the specifics of your emergency department visit. If you don't have a primary care physician on staff, we will provide you with a referral. We always advise you to contact your personal physician following an emergency department visit to inform them of the circumstance of the visit and for follow-up with them and/or the need for any referrals to a consulting specialist. The emergency department will also refer you to a specialist when appropriate. This referral assures that you have the opportunity for follow-up care with a specialist. All of these measure are taken in an effort to provide you with optimal care, which includes your follow-up. Under all circumstances we always encourage you to contact your private physician who remains a resource for coordinating your care. When calling for follow-up care, please make the office aware that this follow-up is from your recent emergency room visit. If for any reason you are refused follow-up, please contact the [facility] Emergency Department at and asked to speak to the emergency department charge nurse. You were seen on emergent basis. Today your coronavirus swab was negative however we do recommend a 10-day quarantine. Please continue to use the albuterol as needed for wheezing and shortness of breath. Please take Tylenol and Motrin for fever and pain relief. Return to the emergency department for any new worsening symptoms such as shortness of breath, cough, or pulse oximetry 90% or less. Please follow-up with your primary care physician within 2 to 3 days. [facility] [address] [place] [id number] [address] Sepsis Event Note (ED) - Evaluation Sepsis Screening Result: No Definite Risk - Focused Exam Vital Signs: Vital Signs Temp Pulse Resp BP Pulse Ox 06/25/20 10:30 36.6 C 70 16 124/84 94 L 06/25/20 08:45 35.9 C L 79 16 136/83 95 - My Orders Last 24 Hours: My Active Orders 06/25/20 09:12 CORONAVIRUS COVID-19 PCR [facility] Stat - Assessment/Plan Last 24 Hours: My Active Orders 06/25/20 09:12 CORONAVIRUS COVID-19 PCR [facility] Stat
== END 2020-06-25 10:30 | disposition home or self-care (01) ==
LOC: MW.ED 08:33
DX: J45.901 Unspecified asthma with (acute) exacerbation (principal); F41.9 Anxiety disorder, unspecified; F32.9 Major depressive disorder, single episode, unspecified; F17.210 Nicotine dependence, cigarettes, uncomplicated; Z20.828 Contact with and (suspected) exposure to other viral communicable diseases; Z79.899 Other long term (current) drug therapy
CPT/HCPCS: 71045; 87635; 93005; 99285; J8540; 99283; J3535-GY; U0002